=== PATIENT | female | born 1960 | race Caucasian/White ===

== ENCOUNTER → 2018-01-04 | Outpatient (CLI) | payer OTHER ==
[~2018-01-04] MED LIST: BENADRYL25 MG PO; CALCIUM 500 +1 EAC5 PO; GLUCOSA-CHOND-1 EACH PO; MULTI VITAMIN1 EACH PO; VITCB500GO
== END ==
LOC: RAD 11:32
DX: Z12.31 Encounter for screening mammogram for malignant neoplasm of breast (principal)

== ENCOUNTER → 2018-01-11 | Outpatient (CLI) | payer OTHER | LOC: CAT 07:53 | DX: Z13.6 Encounter for screening for cardiovascular disorders (principal) ==

== ENCOUNTER → 2019-03-12 | Outpatient (CLI) | payer OTHER | LOC: RAD 08:29 | DX: Z12.31 Encounter for screening mammogram for malignant neoplasm of breast (principal) ==

== ENCOUNTER → 2019-04-17 | Outpatient (CLI) | payer OTHER | LOC: NUC 07:18 | DX: N91.2 Amenorrhea, unspecified (principal); T14.8XXA Other injury of unspecified body region, initial encounter; X58.XXXA Exposure to other specified factors, initial encounter; Y93.89 Activity, other specified; Y92.89 Other specified places as the place of occurrence of the external cause; Y99.8 Other external cause status; Z78.0 Asymptomatic menopausal state; Z82.62 Family history of osteoporosis ==

== ENCOUNTER → 2019-09-11 | Outpatient (CLI) | payer OTHER | LOC: MRI 07:20 | DX: S46.811A Strain of other muscles, fascia and tendons at shoulder and upper arm level, right arm, initial encounter (principal); M75.91 Shoulder lesion, unspecified, right shoulder; M19.011 Primary osteoarthritis, right shoulder; X58.XXXA Exposure to other specified factors, initial encounter; Y93.89 Activity, other specified; Y92.89 Other specified places as the place of occurrence of the external cause; Y99.8 Other external cause status ==

== ENCOUNTER 2019-11-05 11:48 | Day surgery (SDC) | payer OTHER ==
[~2019-11-05] VITALS: Ht 154.9 cm; Wt 55.8 kg
[~2019-11-05 11:48] MED LIST changes: +ALEVE220 M1 PO; +VITAMIN B COMP1 EACH PO; +ZYRTEC10 M5 PO
[2019-11-05 12:20] VITALS: BP 104/58
[2019-11-05 15:41] VITALS: BP 104/58
--- NOTE | 2019-11-12 10:01 | O ---
[facility] [place] [address] OPERATIVE REPORT Name: GILBERTO BELTRÁN Room #: DEP [facility] MJacob.#: [id number] Admission: 11/05/19 Attend Phys: Jas Lowe Discharge: 11/05/19 Date of : 60 Report #: [id number] THIS REPORT FOR: //name// CC: Jas Corley DATE OF SERVICE: 11/05/2019 PREOPERATIVE DIAGNOSES: Right shoulder pain, rotator cuff tear, impingement syndrome. POSTOPERATIVE DIAGNOSES: Right shoulder rotator cuff tear, medium size, upper border subscapularis and supraspinatus, complex labral tear, intraarticular synovitis; subacromial bursitis with impingement syndrome. PROCEDURE PERFORMED: Right shoulder arthroscopy, rotator cuff repair, subacromial decompression, extensive debridement. SURGEON: Jas Cooper MD MANAGER SECURITY AND SAFETY: Libra Stark PA-C. ANESTHESIA: General with preoperative ultrasound-guided block. FLUIDS: 800 mL of crystalloid. ESTIMATED BLOOD LOSS: Negligible. DESCRIPTION OF PROCEDURE: After proper identification of the patient and operative site in preoperative holding area, the operative site was signed by myself. Prophylactic antibiotics given. The patient elected to receive an interscalene block after reviewing the risks, benefits, alternatives and potential complications with anesthesia. After a satisfactory block, the patient was brought back to the operative suite. After induction of satisfactory general anesthesia, the right shoulder was examined. It was stable throughout a full arc of motion comparable to the preoperative assessment. The patient was then carefully positioned in the left lateral decubitus position. [place]isle bag and axillary roll were utilized to support the torso. The right shoulder was sterilely prepped and draped in the usual manner and placed in 10 pounds of balanced arthroscopic suspension. Posterior portal was established, joint was inflated with an arthroscopic pump set at 40 mmHg. Anterior superior portal was created using a spinal needle for localization. Examination of the glenohumeral joint revealed some intraarticular synovitis about the rotator interval and superior capsular structures, evidence of a full thickness rotator cuff tear, articular-sided fraying and tearing noted of the supraspinatus. This was carefully debrided with motorized shaver. Long head of biceps tendon was [facility] [address] [place] [address] OPERATIVE REPORT Name: GILBERTO BELTRÁN Room #: DEP [facility] M.R.#: [id number] Admission: 11/05/19 Attend Phys: Jas Lowe Discharge: 11/05/19 Date of : 60 Report #: [id number] intact and stable in its attachment to the superior labrum, but the superior labrum demonstrated tearing. Frayed and torn portion was carefully debrided with a motorized shaver. It was not unstable and upper border tear of the subscapularis was noted. This was not a complete tear of the tendon, but a partial thickness tear of the upper border. Long head of biceps tendon was stable, within its groove. It could not be subluxated into the joint. No groove pathology was noted. Some mild fraying was noted of the inferior labrum as well. At this point, an additional anterior inferior portal was created using a spinal needle for localization. The upper border of the subscapularis was repaired with a 4.75 mm SwiveLock anchor and a FiberTape passed in a simple manner after the lesser tuberosity had been prepared with sharp ring curette and motorized shaver. This nicely reduced the upper rolled border as noted in the 10th image. Thickened subacromial bursa was encountered. It was resected for visualization purposes. A crescent shape full thickness rotator cuff tear approximately 12 mm in width was noted. After soft tissue was removed from the greater tuberosity with combination of hand and motorized instrumentation through a separate portal off the lateral border of the acromion, a double loaded SwiveLock anchor 4.75 mm in diameter was utilized. The SwiveLock anchor was inserted through its pretapped hole. The bone was relatively soft, but the anchor still appeared to have good purchase and the sutures were passed in a horizontal mattress fashion, tied with locking sliding knots, backed up with alternating half hitches. Double row fixation was utilized using additional SwiveLock anchor. The repair construct was stable to probing. Fraying on the undersurface of the coracoacromial arch was noted. CA ligament was released, but not resected off the anterolateral acromion. Prominence to the acromion was removed using motorized bur. Approximately 3 mm of bone was resected here. Subacromial space thoroughly irrigated with normal saline. No other bursal-sided abnormalities were appreciated. Sterile dressing was applied after the portals were closed. The patient will be immobilized in a sling and abduction pillow for 6 weeks postoperatively with no external rotation beyond neutral for the first 4 weeks. Qualified pizza hut assistant utilized throughout the entire procedure to aid in patient limb positioning, visualization with the arthroscope instrument and suture passage as well as closure and sling application. <ELECTRONICALLY SIGNED> By: Jas Cooper MD 11/12/19 [id number] Jas Cooper MD /nt
== END 2019-11-05 16:55 | disposition home or self-care (01) ==
LOC: OR 11:48 → TBA 14:21 → OR 15:10
DX: M25.511 Pain in right shoulder (principal); M75.101 Unspecified rotator cuff tear or rupture of right shoulder, not specified as traumatic; M65.811 Other synovitis and tenosynovitis, right shoulder; M75.51 Bursitis of right shoulder; M75.41 Impingement syndrome of right shoulder; J45.909 Unspecified asthma, uncomplicated; J32.9 Chronic sinusitis, unspecified; Z98.890 Other specified postprocedural states; Z79.899 Other long term (current) drug therapy
CPT/HCPCS: 50010; 50101; 50172; 50386; 50417; 50950; 51038; 51445; 51847; 52313; 53610; 54170; 55430; 56527; 57103; 62110; 62900; 64043; 65060; 70005

== ENCOUNTER → 2020-01-02 | Outpatient (CLI) | payer OTHER ==
[~2020-01-02] VITALS: Ht 154.9 cm; Wt 55.3 kg
[~2020-01-02] MED LIST changes: +ASA81BEC PO; +PERCOCET 5-3251 EACH PO
--- NOTE | 2020-01-07 09:46 | P ---
[facility] [place] [address] PROCEDURE REPORT Name: GILBERTO BELTRÁN Room #: REG DORYS Manuel#: [id number] Admission: 01/02/20 Attend Phys: Tirso Yanes Discharge: Date of : 60 Report #: [id number] THIS REPORT FOR: cc: Mulu Corley DNP, Mary E. DNP McElhinney, Christian C. MD ~ CC: Tirso Corley NON DESTRUCTIVE EVALUATION SPECIALIST DATE OF SERVICE: 01/02/2020 PROCEDURE PERFORMED: Colonoscopy. HISTORY OF PRESENT ILLNESS: The patient is a 59-year-old female who presents today for routine screening colonoscopy. She denies any symptoms. No family history of colon cancer. DESCRIPTION OF PROCEDURE: The risks and benefits of the procedure were explained to the patient, those risks including, but not limited to bleeding, perforation and the risk of sedation. She understood these risks and gave informed consent. Sedation was given using propofol per anesthesia. Next, a digital rectal exam was initially performed, which was normal. Next, using a standard Olympus colonoscope, the scope was placed in the patient's anus and advanced under direct vision to the cecum. The overall prep was good. The cecum and ileocecal valve were normal in appearance. The ascending, transverse, descending and sigmoid colon were normal. The rectal mucosa was normal. On retroflexion, no abnormalities were noted. The scope was then withdrawn and the procedure terminated. The patient tolerated the procedure well. IMPRESSION: Normal colonoscopy. RECOMMENDATIONS: Repeat colonoscopy in 10 years. Thank you for allowing me to participate in her care. <ELECTRONICALLY SIGNED> By: Tirso Allred MD 01/07/20 [id number] [id number] Tirso Allred MD /nt
== END | disposition home or self-care (01) ==
LOC: GI 06:58
DX: Z12.11 Encounter for screening for malignant neoplasm of colon (principal); J45.990 Exercise induced bronchospasm; J32.9 Chronic sinusitis, unspecified; Z98.890 Other specified postprocedural states; Z79.899 Other long term (current) drug therapy; Z88.0 Allergy status to penicillin; Z79.82 Long term (current) use of aspirin
CPT/HCPCS: 62110; 62900

== ENCOUNTER → 2020-12-16 | Outpatient (CLI) | payer OTHER | LOC: RAD 10:57 | PROVIDERS: ATTEND Family Medicine | DX: Z12.31 Encounter for screening mammogram for malignant neoplasm of breast (principal) ==

== ENCOUNTER → 2020-12-28 | Outpatient (CLI) | payer OTHER ==
[2020-12-28 09:47] LABS: ABSOLUTE NEUTROPHILS 3.9 thou/uL (1.4-8.2); BASOPHILS 0.9 % (0.0-2.0); EOSINOPHILS 1.3 % (0.0-3.0); HEMATOCRIT 37.5 % (37.0-47.0); HEMOGLOBIN 12.3 gm/dL (12.0-15.0); MCH 28.5 pg (26.0-34.0); MCHC 32.9 g/dL (28.0-37.0); MCV 86.7 fL (80.0-100.0); MONOCYTES 9.6 % (1.0-8.0); PLATELET COUNT 358 thou/uL (150-400); POLYS 70.2 % (36.0-66.0); RBC 4.32 mil/uL (4.20-5.00); WBC 5.6 thou/uL (4.0-11.0)
[2020-12-28 10:02] LABS: ANION GAP 7 mmol/L (7-16); BUN 11 mg/dL (7-18); CALCIUM 9.2 mg/dL (8.5-10.1); CHLORIDE 101 mmol/L (98-107); CO2 29 mmol/L (21-32); CREATININE 0.6 mg/dL (0.6-1.0); GLUCOSE 80 mg/dL (74-106); POTASSIUM 4.3 mmol/L (3.5-5.1); SGOT 30 U/L (15-37); SGPT 33 U/L (14-59); SODIUM 137 mmol/L (136-145); TOTAL BILIRUBIN 0.5 mg/dL (0.2-1.0); TOTAL PROTEIN 6.9 g/dL (6.4-8.2)
[2020-12-28 15:18] LABS: CHOLESTEROL 189 mg/dL (<200); HDL CHOLESTEROL 73 mg/dL (>40); LDL CHOLESTEROL 106 mg/dL (<100); TC:HDL 2.6 Ratio (Not establshd); TRIGLYCERIDE 54 mg/dL (<150); VLDL 11 mg/dL (<40)
== END ==
LOC: LAB 08:35
PROVIDERS: ATTEND Nurse Practitioner
DX: Z00.00 Encounter for general adult medical examination without abnormal findings (principal); Z13.220 Encounter for screening for lipoid disorders

== ENCOUNTER → 2021-12-28 | Outpatient (CLI) | payer OTHER | LOC: RAD 09:43 | PROVIDERS: ATTEND Family Medicine | DX: Z12.31 Encounter for screening mammogram for malignant neoplasm of breast (principal) ==